=== PATIENT | male | born 1980 | race Asian ===

== ENCOUNTER 2023-02-06 21:10 | Emergency (ER) | payer BC ==
[~2023-02-06] VITALS: Ht 175.3 cm; Wt 84.1 kg
[~2023-02-06 21:10] MED LIST: NO HOME MEDS
[2023-02-06 21:19] VITALS: BP 157/110; PULSE 112; RESP 16; TEMP 98.1; O2SAT 97
== END 2023-02-07 04:40 | disposition home or self-care (01) ==
LOC: ER 21:10
DX: S00.81XA Abrasion of other part of head, initial encounter (principal); Y08.89XA Assault by other specified means, initial encounter; Y93.89 Activity, other specified; Y92.89 Other specified places as the place of occurrence of the external cause; Y99.8 Other external cause status
CPT/HCPCS: 99283